=== PATIENT | male | born 1940 | race Caucasian/White ===

== ENCOUNTER 2018-05-02 00:15 | Outpatient (CLI) | payer MEDICARE | END 2018-05-02 00:16 | disposition critical access hospital (66) | LOC: EMS 00:15 | PROVIDERS: ATTEND Surgery | DX: R10.9 Unspecified abdominal pain (principal); R11.0 Nausea ==

== ENCOUNTER 2018-05-02 00:40 | Emergency (ER) | payer MEDICARE ==
--- NOTE | 2018-05-02 00:50 | ED Physician Documentation ---
PD HPI ABD PAIN - Stated complaint Stated Complaint: ABD PX - Chief complaint Chief Complaint: Abd Pain - History obtained from History obtained from: Patient, EMS - History of Present Illness Timing - onset: How many hours ago (4), Today Timing - details: Gradual onset, Still present Quality: Cramping, Aching Location: RLQ, LLQ Worsened by: Position, Palpation Associated symptoms: No: Fever, Nausea, Vomiting, Constipation Similar symptoms before: Has not had sx before Recently seen: Not recently seen - Additional information Additional information: Patient is a 78 year old male with no significant past medical history but 7 prior abdominal hernia surgeries who is presenting to the emergency department for abdominal pain. Patient states that the pain started about 4 hours ago. is was a subtle ache in left and right lower quadrants. Patient denies nausea, vomiting fever or chills. Review of Systems Constitutional: denies: Fever, Chills Cardiac: denies: Chest pain / pressure GI: reports: Abdominal Pain, Abdominal Swelling. denies: Nausea, Vomiting, Constipation, Diarrhea : denies: Dysuria, Frequency, Hesitancy Neurologic: denies: Generalized weakness, Focal weakness Immunocompromised: denies: Immunocompromised PD PAST MEDICAL HISTORY - Present Medications Home Medications: Ambulatory Orders Medication Instructions Recorded Confirmed Aspirin [Children's Aspirin] 1 tab PO 05/02/18 Simvastatin 20 mg PO DAILY 05/02/18 05/02/18 - Allergies Allergies/Adverse Reactions: Allergies Allergy/AdvReac Type Severity Reaction Status Date / Time Penicillins Allergy Unknown Verified 05/02/18 01:00 PD ED PE NORMAL - Vitals Vital signs reviewed: Yes - General General: Alert and oriented X 3, No acute distress - HEENT HEENT: Atraumatic - Neck Neck: Supple, no meningeal sign - Cardiac Cardiac: RRR, No murmur - Derm Derm: Normal color, Warm and dry - Extremities Extremities: No deformity - Neuro Neuro: Alert and oriented X 3, No motor deficit, Normal speech Eye Opening: Spontaneous Motor: Obeys Commands Verbal: Oriented GCS Score: 15 - Psych Psych: Normal mood PD ED PE EXPANDED - HEENT HEENT: Dry mucous membranes - Abdomen Abdomen: Distended, Tender to palpation, RLQ, LLQ. No: Rebound, Guarding Results - Vitals Vitals: Vital Signs - 24 hr 05/02/18 05/02/18 05/02/18 00:40 02:08 02:48 Temperature 36.5 C Heart Rate 98 59 L 60 Respiratory 18 16 16 Rate Blood Pressure 179/93 H 191/91 H 197/88 H O2 Saturation 100 99 98 Oxygen O2 Source Room air - EKG (time done) 0244 Rate: Rate (enter#) (60) Rhythm: NSR QRS: LVH Ischemia: Normal ST segments Compare to prior EKG: Old EKG unavailable - Labs Labs: Laboratory Tests 05/02/18 05/02/18 05/02/18 01:01 01:01 01:01 WBC 6.5 RBC 4.53 L Hgb 14.6 Hct 43.6 MCV 96.1 H MCH 32.3 H MCHC 33.6 RDW 14.0 Plt Count 172 MPV 8.8 Neut # (Auto) 5.4 Lymph # (Auto) 0.6 L [place] # (Auto) 0.5 Eos # (Auto) 0.1 Baso # (Auto) 0.0 Absolute Nucleated RBC 0.00 Nucleated RBC % 0.0 PT 11.4 INR 1.0 APTT 22.9 L Sodium 132 L Potassium 4.0 Chloride 97 L Carbon Dioxide 28 Anion Gap 7.0 BUN 29 H Creatinine 1.2 Estimated GFR (MDRD) 58 L Glucose 132 H Lactic Acid Calcium 9.1 Phosphorus 3.8 Magnesium 2.4 Total Bilirubin 0.9 AST 22 ALT 22 Alkaline Phosphatase 81 Total Protein 7.0 Albumin 3.9 Globulin 3.1 Albumin/Globulin Ratio 1.3 Lipase 24 05/02/18 02:40 WBC RBC Hgb Hct MCV MCH MCHC RDW Plt Count MPV Neut # (Auto) Lymph # (Auto) Gray # (Auto) Eos # (Auto) Baso # (Auto) Absolute Nucleated RBC Nucleated RBC % PT INR APTT Sodium Potassium Chloride Carbon Dioxide Anion Gap BUN Creatinine Estimated GFR (MDRD) Glucose Lactic Acid 1.1 Calcium Phosphorus Magnesium Total Bilirubin AST ALT Alkaline Phosphatase Total Protein Albumin Globulin Albumin/Globulin Ratio Lipase - Rads (name of study) ct abd pelvis Radiology: Final report received, Discussed with rads (findings worisome for ischemic bowel) PD MEDICAL DECISION MAKING - ED course Complexity details: reviewed old records, reviewed results, re-evaluated patient , considered differential, d/w patient, d/w business continuity consultant ED course: Patient was seen and examined at bedside. IV access was gained and labs were drawn. imaging was ordered. Patient was treated with a fluid bolus, morphine and zofran. When patient returned from imaging the results were reviewed and discussed with radiologist. Radiologist stated that the non inhancing wall was worrisome for ischemic bowel. scallop binder surgeon was immediately contacted and the case was discussed with him. He stated that the patient should be transferred to another hospital. [facility] in opp was full and patient's primary care was at . Case was discussed with clinical operations specialist surgeon, Dr. Elias who accepted transfer to [facility]. Arrangements were made for airlift and patient was transferred in stable condition. - Sepsis Event Vital Signs: Vital Signs - 24 hr 05/02/18 05/02/18 05/02/18 00:40 02:08 02:48 Temperature 36.5 C Heart Rate 98 59 L 60 Respiratory 18 16 16 Rate Blood Pressure 179/93 H 191/91 H 197/88 H O2 Saturation 100 99 98 Oxygen O2 Source Room air Departure - Departure Disposition: 02 Transfer Acute Care Hosp Clinical Impression: Ischemic bowel disease Condition: Stable
[2018-05-02 01:08] LABS: BASOPHILS % (AUTO) 0.5 %; EOSINOPHILS # (AUTO) 0.1 10^3/uL (0.0-0.7); EOSINOPHILS % (AUTO) 0.8 %; HGB - HEMOGLOBIN 14.6 g/dL (14.0-18.0); LYMPHOCYTES # (AUTO) 0.6 10^3/uL (1.5-3.5); LYMPHOCYTES % (AUTO) 8.6 %; MEAN CORPUSCULAR HEMOGLOBIN 32.3 pg (27.0-31.0); MEAN CORPUSCULAR HGB CONC 33.6 g/dL (32.0-36.0); MEAN CORPUSCULAR VOLUME 96.1 fL (80.0-94.0); MEAN PLATELET VOLUME 8.8 fL (7.4-11.4); MONOCYTES # (AUTO) 0.5 10^3/uL (0.0-1.0); MONOCYTES % (AUTO) 7.1 %; NEUTROPHILS # (AUTO) 5.4 10^3/uL (1.5-6.6); PLT - PLATELET COUNT 172 10^3/uL (130-450); RED BLOOD COUNT 4.53 10^6/uL (4.70-6.10); WHITE BLOOD COUNT 6.5 x10^3/uL (4.8-10.8)
[2018-05-02 01:23] LABS: ALBUMIN 3.9 g/dL (3.2-5.5); ALBUMIN/GLOBULIN RATIO 1.3 (1.0-2.2); BILIRUBIN,TOTAL 0.9 mg/dL (0.2-1.0); CALCIUM 9.1 mg/dL (8.5-10.3); CREATININE 1.2 mg/dL (0.6-1.2); MAGNESIUM 2.4 mg/dL (1.7-2.8); PHOSPHORUS 3.8 mg/dL (2.5-4.6)
[2018-05-02] MEDS ORDERED: IOPAMIDOL-300 100 ML VIAL ONE (01:30)
[2018-05-02] MEDS ORDERED: SODIUM CHLORIDE 0.9% 1,000 ML IV ONE (01:34)
[2018-05-02] MEDS ORDERED: IOPAMIDOL-300 100 ML VIAL IVP ONE (01:42)
[2018-05-02] MEDS ORDERED: MORPHINE 10 MG/ML VIAL IVP STA (01:51)
[2018-05-02] MEDS ORDERED: ONDANSETRON 4 MG/2 ML VIAL IVP STA (01:58)
[2018-05-02] MEDS ORDERED: ONDANSETRON 4 MG/2 ML VIAL ONE (02:10)
--- NOTE | 2018-05-02 02:34 | CT Preliminary Report ---
Exam: CT ABDOMEN/PELVIS W/ IMPRESSION: 1. Mildly dilated fluid-filled lower abdominal and pelvic small bowel loops. There is severely dimini shed/non-enhancement of the bowel wall, worrisome for ischemia. 2. No definite pneumatosis image. At this time. 3. There is a patent celiac and SMA. 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 4. Small bilateral lower lobe airspace disease may be from atelectasis. Aspiration or early pneumonia difficult to exclude. RADIA The call report notification system was initiated by Dr. Aurelia York at 02:29 hrs on 05/02/18. The above findings were discussed with Tray Simpson by Dr. Aurelia York at 02:32 hrs on 05/02/18. SITE ID: [id number]
[2018-05-02 02:52] LABS: PT - PROTHROMBIN TIME 11.4 secs (9.9-12.6)
--- NOTE | 2018-05-02 03:15 | CT Report ---
EXAM: CT ABDOMEN AND PELVIS EXAM DATE: 05/02/2018 01:55 AM. CLINICAL HISTORY: Lower abdominal pain, distention. COMPARISONS: None. TECHNIQUE: Routine helical CT imaging was performed through the abdomen and pelvis. IV contrast: 100M L ISOVUE 300. Enteric contrast: No. Reconstructions: Coronal and sagittal. In accordance with CT protocol optimization, one or more of the following dose reduction techniques w ere utilized for this exam: automated exposure control, adjustment of mA and/or KV based on patient s ize, or use of iterative reconstructive technique. FINDINGS: ABDOMEN: Liver: A few scattered small subcentimeter low-density foci are present, too small to accurately [place] acterize at this time. Stomach/Distal Esophagus: Small to medium hiatal hernia. Gallbladder: No significant abnormality. Bile Ducts: No significant abnormality. Pancreas: No significant abnormality. Spleen: No significant abnormality. Kidneys: No suspicious solid appearing lesion. No hydronephrosis. Adrenals: No significant abnormality. Bowel: Multiple fluid-filled mildly dilated lower abdominal and pelvic small bowel loops are present. However, there is no or severely diminished wall enhancement of the said bowel loops. Peristalsis ve rsus short segment bowel wall thickening of a right lower quadrant small bowel loop. Appendix: The appendix could not be identified with certainty. Lymph Nodes: No pathologically enlarged nodes. Vasculature: Normal caliber aorta. Moderate aortic atherosclerosis. Celiac and SMA are patent. 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 Fluid: Small volume ascites noted. Abdominal Wall: No significant abnormality. Other: No significant abnormality. PELVIS: Prostate and Seminal Vesicles: Prior prostatectomy is noted. Seminal vesicles also appears surgically absent. Bladder: No significant abnormality. Lymph Nodes: No pathologically enlarged nodes. Fluid: Small volume ascites layers within the pelvis. Other: None. BONES: No suspicious bony lesions. However, bones are osteopenic. This reduces exam sensitivity and specificity for detection of subtle bony lesions and/or fractures. Severe multilevel degenerative ch anges within the spine. LOWER CHEST: Small patchy bilateral lower lobe airspace disease. There is no significant consolidatio n noted elsewhere. No large effusion. IMPRESSION: 1. Mildly dilated fluid-filled lower abdominal and pelvic small bowel loops. There is severely dimini shed/non-enhancement of the bowel wall, worrisome for ischemia. 2. No definite pneumatosis demonstrated at this time. 3. There is a patent celiac and SMA. 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 4. Small bilateral lower lobe airspace disease may be from atelectasis. Aspiration or early pneumonia difficult to exclude. RADIA The call report notification system was initiated by Dr. Aurelia York at 02:29 hrs on 05/02/18. The above findings were discussed with Tray Simpson by Dr. Aurelia York at 02:32 hrs on 05/02/18. Referring Provider Line: [phone] SITE ID: [id number]
[2018-05-02 04:51] VITALS: BP 157/96
== END 2018-05-02 04:52 | disposition short-term general hospital (02) ==
LOC: ED 00:40
DX: K55.9 Vascular disorder of intestine, unspecified (principal); Z98.890 Other specified postprocedural states
CPT/HCPCS: 36415; 51798; 74177; 80053; 83605; 83690; 83735; 84100; 85025; 85610; 85730; 93005; 96361; 96374; 96375; 99285; Q9967; 84702; 99284

== ENCOUNTER 2018-05-02 04:51 | Outpatient (CLI) | payer MEDICARE | END 2018-05-02 04:52 | disposition short-term general hospital (02) | LOC: EMS 04:51 | PROVIDERS: ATTEND Surgery | DX: R10.30 Lower abdominal pain, unspecified (principal); R11.0 Nausea ==

== ENCOUNTER 2018-07-27 07:07 | Emergency (ER) | payer MEDICARE ==
--- NOTE | 2018-07-27 07:30 | ED Physician Documentation ---
PD HPI CHEST PAIN - Stated complaint Stated Complaint: CP - Chief complaint Chief Complaint: Cardiac - History obtained from History obtained from: Patient - History of Present Illness Timing - onset: Enter time (0200), Last night Timing - onset during: Sleep Timing - duration: Hours Timing - details: Gradual onset, Now resolved Pain level max: 5 Pain level now: 0 Quality: Pressure, Aching Location: Left chest Radiation: Neck Worsened by: Inspiration. No: Exertion Associated symptoms: No: Shortness of air, Diaphoresis, Nausea, Vomiting, Feeling faint / dizzy, General Weakness, Palpitations, Cough Similar symptoms before: Has not had sx before Recently seen: Surgery - Additional information Additional information: 78-year-old male with a history of multiple hernia surgeries who has recently been transferred from our hospital down to the [facility] for ischemic bowel which apparently was related to incarcerated hernia. At that hospitalization he had a section of bowel removed initially and had a second look operation and a smaller section of bowel was also removed at the second operation. He was evaluated by the production cloth cutter following that for review of potential rhythm disturbance and the production cloth cutter took him off of his aspirin as he thought the risk of bleeding was higher than then any risk of clot. The patient does not have a history of atrial fibrillation he has not had coronary artery disease documented previously the daughter believes at one point he did have an angiogram done. He is otherwise been in good health and quite active still does water aerobics 3 times per week until this most recent operation. Last night while asleep he was awakened by pain in his left chest that radiated into his neck. He rated the pain as a 5 out of 10 at its maximum and he is not having pain now. He states that he was able to get back to sleep and this morning when he told his daughter about this pain he had she brought him to the hospital. He states when he got up to get out of the car he did not have an increase in his symptoms and now he only has pain if he takes a deep breath. He has not been recently ill. Review of Systems Constitutional: denies: Fever Eyes: denies: Decreased vision Ears: denies: Ear pain Nose: denies: Congestion Throat: denies: Sore throat Cardiac: reports: Chest pain / pressure. denies: Palpitations, Pedal edema, Calf pain Respiratory: denies: Dyspnea, Cough, Wheezing GI: reports: Constipation (1.5 days). denies: Abdominal Pain, Nausea, Vomiting , Diarrhea : denies: Dysuria, Frequency Skin: denies: Rash Musculoskeletal: denies: Neck pain, Back pain, Extremity pain PD PAST MEDICAL HISTORY - Past Medical History Cardiovascular: High cholesterol - Past Surgical History Past Surgical History: Yes General: Hiatal hernia repair - Present Medications Home Medications: Ambulatory Orders Medication Instructions Recorded Confirmed Simvastatin 20 mg PO DAILY 05/02/18 05/02/18 - Allergies Allergies/Adverse Reactions: Allergies Allergy/AdvReac Type Severity Reaction Status Date / Time Penicillins Allergy Unknown Verified 07/27/18 07:15 - Social History Does the pt smoke?: No Smoking Status: Never smoker Does the pt drink ETOH?: Yes Does the pt have substance abuse?: No - Immunizations Immunizations are current?: Yes - POLST Patient has POLST: No PD ED PE NORMAL - Vitals Vital signs reviewed: Yes (hypertensive ) - General General: Alert and oriented X 3, No acute distress, Well developed/nourished - HEENT HEENT: Atraumatic, PERRL, EOMI, Other (dry mucous membranes ) - Neck Neck: Supple, no meningeal sign, No bony TTP - Cardiac Cardiac: RRR, Other (2/6 holosystolic murmer at LSB) - Respiratory Respiratory: No respiratory distress, Clear bilaterally - Abdomen Abdomen: Soft, Non tender - Back Back: No CVA TTP, No spinal TTP - Derm Derm: Normal color, Warm and dry, No rash - Extremities Extremities: No deformity, No edema - Neuro Neuro: Alert and oriented X 3, ceiling cleaner 2-12 intact, No motor deficit, No sensory deficit, Normal speech, Other (The patient does have cogwheeling and stiffness to the ROM of the upper ext and he has a slight tremor. ) Eye Opening: Spontaneous Motor: Obeys Commands Verbal: Oriented GCS Score: 15 - Psych Psych: Normal mood, Other (affect is flat consistent with masked facies of Parkinsons ) Results - Vitals Vitals: Vital Signs - 24 hr 07/27/18 07/27/18 07/27/18 07:11 10:13 10:16 Temperature 37 C Heart Rate 77 87 70 Respiratory 20 15 23 Rate Blood Pressure 177/96 H 192/82 H 192/82 H O2 Saturation 98 99 96 07/27/18 11:29 Temperature Heart Rate 73 Respiratory 13 Rate Blood Pressure 140/87 H O2 Saturation 100 Oxygen O2 Source Room air - EKG (time done) 0717 Rate: Rate (enter#) (68) Rhythm: NSR QRS: LVH Ischemia: Normal ST segments Compare to prior EKG: Unchanged from prior EKG (05-02-18) Computer interpretation: Agree with computer - Labs Labs: Laboratory Tests 07/27/18 07/27/18 07/27/18 07:39 07:39 07:39 WBC 11.3 H RBC 4.06 L Hgb 13.2 L Hct 39.0 L MCV 96.2 H MCH 32.4 H MCHC 33.7 RDW 13.8 Plt Count 156 MPV 9.9 Neut # (Auto) 9.7 H Lymph # (Auto) 0.5 L [place] # (Auto) 0.9 Eos # (Auto) 0.1 Baso # (Auto) 0.0 Absolute Nucleated RBC 0.00 Nucleated RBC % 0.0 Sodium 135 Potassium 3.9 Chloride 102 Carbon Dioxide 28 Anion Gap 5.0 L BUN 22 H Creatinine 0.8 Estimated GFR (MDRD) 93 Glucose 108 H Calcium 8.9 Total Bilirubin 0.5 AST 15 ALT 13 Alkaline Phosphatase 82 Troponin I < 0.04 Total Protein 7.0 Albumin 3.7 Globulin 3.3 Albumin/Globulin Ratio 1.1 Lipase 28 07/27/18 10:40 WBC RBC Hgb Hct MCV MCH MCHC RDW Plt Count MPV Neut # (Auto) Lymph # (Auto) [place] # (Auto) Eos # (Auto) Baso # (Auto) Absolute Nucleated RBC Nucleated RBC % Sodium Potassium Chloride Carbon Dioxide Anion Gap BUN Creatinine Estimated GFR (MDRD) Glucose Calcium Total Bilirubin AST ALT Alkaline Phosphatase Troponin I < 0.04 Total Protein Albumin Globulin Albumin/Globulin Ratio Lipase - Rads (name of study) 2 veiw chest Radiology: Prelim report reviewed (Impression: 1. No definite acute cardiopulmonary abnormality. 2 COPD. 3 Degenerative changes and scoliosis of the spine.), EMP read indepedently, See rad report Procedures - IVC sono (time) 0710 Bedside IVC sono: IVC measures (cm) (1.22), IVC collapsed c insp (cm) (complete) , Dehydration (est 1 liter deficit) PD MEDICAL DECISION MAKING - ED course Complexity details: reviewed old records, reviewed results, re-evaluated patient , considered differential, d/w patient, d/w family ED course: 78-year-old male with no prior history of hypertension or coronary artery disease has developed chest pain last night. On examination the patient appears hypertensive and he has diminished volume on interrogation of the inferior vena cava. I suspect fornical organ dysfunction and intravenous saline is begun. He responds to fluid with a decrease in his blood pressure. He does not have pain now. He did have hours of pain with negative trop. I suspect his elevated blood pressure may have been the etiology of his chest pain. - Sepsis Event Vital Signs: Vital Signs - 24 hr 07/27/18 07/27/18 07/27/18 07:11 10:13 10:16 Temperature 37 C Heart Rate 77 87 70 Respiratory 20 15 23 Rate Blood Pressure 177/96 H 192/82 H 192/82 H O2 Saturation 98 99 96 07/27/18 11:29 Temperature Heart Rate 73 Respiratory 13 Rate Blood Pressure 140/87 H O2 Saturation 100 Oxygen O2 Source Room air Departure - Departure Disposition: 01 Home, Self Care Clinical Impression: Dehydration Condition: Stable Instructions: ED Dehydration Follow-Up: COLLEEN VERNON MD [Primary Care Provider] - Discharge Date/Time: 07/27/18 11:57
[2018-07-27 07:45] LABS: BASOPHILS % (AUTO) 0.3 %; EOSINOPHILS # (AUTO) 0.1 10^3/uL (0.0-0.7); HGB - HEMOGLOBIN 13.2 g/dL (14.0-18.0); LYMPHOCYTES # (AUTO) 0.5 10^3/uL (1.5-3.5); LYMPHOCYTES % (AUTO) 4.8 %; MEAN CORPUSCULAR HEMOGLOBIN 32.4 pg (27.0-31.0); MEAN CORPUSCULAR HGB CONC 33.7 g/dL (32.0-36.0); MEAN CORPUSCULAR VOLUME 96.2 fL (80.0-94.0); MEAN PLATELET VOLUME 9.9 fL (7.4-11.4); MONOCYTES # (AUTO) 0.9 10^3/uL (0.0-1.0); MONOCYTES % (AUTO) 7.7 %; NEUTROPHILS # (AUTO) 9.7 10^3/uL (1.5-6.6); NEUTROPHILS % (AUTO) 86.2 %; PLT - PLATELET COUNT 156 10^3/uL (130-450); RED BLOOD COUNT 4.06 10^6/uL (4.70-6.10); RED CELL DISTRIBUTION WIDTH 13.8 % (12.0-15.0); WHITE BLOOD COUNT 11.3 x10^3/uL (4.8-10.8)
[2018-07-27 07:59] LABS: ALBUMIN 3.7 g/dL (3.2-5.5); ALBUMIN/GLOBULIN RATIO 1.1 (1.0-2.2); BILIRUBIN,TOTAL 0.5 mg/dL (0.2-1.0); CALCIUM 8.9 mg/dL (8.5-10.3); CREATININE 0.8 mg/dL (0.6-1.2)
[2018-07-27] MEDS ORDERED: SODIUM CHLORIDE 0.9% 1,000 ML IV ONE (08:03)
--- NOTE | 2018-07-27 08:38 | XRAY Report ---
Reason: chest pain Procedure Date: 07/27/2018 Accession Number: [id number] / [id number] Procedure: XR - Chest 2 View X-Ray CPT Code: 93247 FULL RESULT: EXAM: CHEST RADIOGRAPHY EXAM DATE: 07/27/2018 08:22 AM. CLINICAL HISTORY: Left-sided chest pain for 8 hours. COMPARISON: None. TECHNIQUE: 2 views. FINDINGS: Lungs/Pleura: The lungs are hyperexpanded, compatible with COPD. There is minimal bilateral basilar atelectasis. No acute airspace process noted. No pleural effusions. No pneumothorax. Mediastinum: Heart and mediastinal contours are unremarkable. Other: There are degenerative changes of the spine. There is mild levoscoliosis of the lower thoracic spine. No acute bony abnormality. IMPRESSION: 1. No definitive acute cardiopulmonary abnormality. 2. COPD. 3. Degenerative changes and scoliosis of the spine. RADIA
[2018-07-27 11:29] VITALS: BP 140/87
== END 2018-07-27 11:57 | disposition home or self-care (01) ==
LOC: ED 07:07
DX: R07.9 Chest pain, unspecified (principal); R03.0 Elevated blood-pressure reading, without diagnosis of hypertension; E86.0 Dehydration
CPT/HCPCS: 36415; 71046; 80053; 83690; 84484; 85025; 93005; 96360; 96361; 99282; 99283